=== PATIENT | male | born 1995 | race Caucasian/White ===

== ENCOUNTER 2023-09-16 18:58 | Emergency (ER) | payer OTHER ==
[~2023-09-16] VITALS: Ht 182.9 cm; Wt 129.6 kg
[2023-09-16 19:03] VITALS: TEMP 98.1
[2023-09-16 19:47] LABS: BASOPHILS % (AUTO) 0.2 % (0-1); EOSINOPHILS % (AUTO) 0.2 % (0-6); HEMATOCRIT 46.3 % (42.0-52.0); HEMOGLOBIN 15.6 g/dl (14.0-17.9); LYMPHOCYTES # (AUTO) 2.1 X10'3 (1.1-4.8); LYMPHOCYTES % (AUTO) 12.3 % (21-51); MEAN CORPUSCULAR HEMOGLOBIN 28.6 PG (27.0-31.0); MEAN CORPUSCULAR HGB CONC 33.8 g/dL (33.0-36.5); MEAN CORPUSCULAR VOLUME 84.7 FL (78-98); MEAN PLATELET VOLUME 10.1 FL (7.4-10.4); MONOCYTES # (AUTO) 0.8 X10'3 (0-0.9); MONOCYTES % (AUTO) 4.4 % (2-12); NEUTROPHILS # (AUTO) 14.4 X10'3 (1.8-7.7); NEUTROPHILS % (AUTO) 82.9 % (42-75); PLATELET COUNT 260 X10'3 (140-440); RED BLOOD COUNT 5.46 X10'6 (4.70-6.10); RED CELL DISTRIBUTION WIDTH 13.3 % (11.5-14.5); WHITE BLOOD COUNT 17.4 X10'3 (4.5-11.0)
[2023-09-16 19:59] LABS: ALANINE AMINOTRANSFERASE 170 U/L (12-78); ALBUMIN 4.5 G/DL (3.4-5.0); ALKALINE PHOSPHATASE 74 IU/L (46-116); ANION GAP 10 (8-16); ASPARTATE AMINO TRANSFERASE 59 U/L (10-37); BILIRUBIN,TOTAL 0.6 MG/DL (0.1-1.0); BLOOD UREA NITROGEN 15 MG/DL (7-18); BUN/CREATININE RATIO 16.3 (10.0-20.0); CALCIUM 9.5 MG/DL (8.5-10.1); CHLORIDE 103 MMOL/L (99-107); CREATININE 0.92 MG/DL (0.60-1.10); GLUCOSE 150 MG/DL (70-104); SODIUM 139 MMOL/L (135-145); TOTAL CARBON DIOXIDE 25.6 MMOL/L (24-32); TOTAL PROTEIN 8.8 G/DL (6.4-8.2); eCRCL 130 ML/MIN; eGFR > 90 ML/MIN
[2023-09-16 20:05] LABS: LIPASE 30 U/L (16-77); PRO BRAIN NATRIURETIC PEPTIDE < 30 PG/ML (0-125)
[2023-09-16 20:06] LABS: POTASSIUM 3.8 MMOL/L (3.5-5.1)
[2023-09-16] MEDS: normal saline 1000ML IV soln IVB ONE (20:37)
[2023-09-16] MEDS: meclizine 12.5mg tablet PO ONE (20:38)
[2023-09-16 22:16] LABS: BILIRUBIN,URINE NEGATIVE (Neg); CLARITY,URINE SLIGHTLY CLOUDY (Clear); COLOR,URINE YELLOW (Yellow); GLUCOSE, URINE NEGATIVE (Neg); KETONES,URINE 15 mg/dl (Neg); LEUKOCYTE ESTERASE ,URINE NEGATIVE (Neg); NITRITES, URINE NEGATIVE (Neg); OCCULT BLOOD,URINE NEGATIVE (Neg); PROTEIN,URINE TRACE mg/dl (Neg); UROBILINOGEN,URINE 0.2 E.U/dL (0.2-1.0)
[2023-09-16 22:25] LABS: UA COLLECTION TYPE VOIDED
[2023-09-16 22:27] LABS: MUCUS STRANDS FEW /LPF (Neg); RBC,URINE 0-2 /HPF (0-2); SQUAMOUS EPITHELIAL CELL,UR FEW /LPF (FEW); WBC,URINE 0-4 /HPF (0-4)
[2023-09-16 22:28] LABS: BACTERIA,URINE NONE SEEN /HPF (Neg)
[2023-09-16 22:29] LABS: AMORPHOUS PHOSPHATES 2+
[2023-09-16] MEDS: cloNIDine 0.1 mg tablet PO ONE ×2 (22:46→23:55)
[2023-09-16] MEDS: LORazepam 2 mg/ml vial IV ONE (22:47)
[2023-09-16] MEDS ORDERED: LOSA100T58 PO (23:27)
[2023-09-16] MEDS ORDERED: PRED20TA PO (23:28)
[2023-09-16] MEDS ORDERED: MECL-302 PO (23:28)
[2023-09-16] MEDS ORDERED: ONDA-243 PO (23:28)
[2023-09-16] MEDS: LORazepam 1 MG tablet PO ONE (23:55)
[2023-09-16] MEDS: dexamethasone sod phosphate 10mg/ml inj PO STA (23:56)
[2023-09-17] VITALS: BP 175/111; PULSE 78; RESP 15; O2SAT 100
== END 2023-09-17 00:32 | disposition home or self-care (01) ==
LOC: ER 18:58
DX: E86.0 Dehydration (principal); R42 Dizziness and giddiness; R11.2 Nausea with vomiting, unspecified; I10 Essential (primary) hypertension; Z79.899 Other long term (current) drug therapy; Z79.52 Long term (current) use of systemic steroids
CPT/HCPCS: 36415; 71045; 80053; 81001; 83690; 83880; 84145; 84484; 85025; 93005; 96361; 96374; 99285; J1100; J2060; J7030; J8597